=== PATIENT | male | born 1955 | race Caucasian/White ===

== ENCOUNTER 2018-02-08 11:21 | Emergency (ER) | payer OTHER ==
[~2018-02-08] VITALS: Ht 170.2 cm; Wt 108.0 kg
[2018-02-08 11:39] VITALS: BP 138/76
[2018-02-08] MEDS ORDERED: HYDR-4383 PO (12:37)
== END 2018-02-08 13:10 | disposition home or self-care (01) ==
LOC: ER 11:22
DX: S82.841A Displaced bimalleolar fracture of right lower leg, initial encounter for closed fracture (principal); S90.412A Abrasion, left great toe, initial encounter; Z88.6 Allergy status to analgesic agent; W18.49XA Other slipping, tripping and stumbling without falling, initial encounter; Y93.89 Activity, other specified; Y92.89 Other specified places as the place of occurrence of the external cause; Y99.9 Unspecified external cause status
CPT/HCPCS: 29515; 73610; 73620; 99284